=== PATIENT | male | born 1985 | race African-American/Black ===

== ENCOUNTER 2018-02-15 07:48 | Emergency (ER) | payer OTHER ==
[~2018-02-15] VITALS: Ht 188 cm; Wt 107.0 kg
[2018-02-15] MEDS ORDERED: MAGNESIUM/ALUMINUM HYDROXIDE/SIMETHICONE 30ML UDC PO ONE (08:15)
[2018-02-15] MEDS ORDERED: VISCOUS LIDOCAINE 2% 15 ML UDC PO ONE (08:15)
[2018-02-15] MEDS ORDERED: ONDANSETRON 4MG ODT PO ONE (08:15)
[2018-02-15] MEDS ORDERED: FAMOTIDINE 20MG TABLET PO ONE (08:15)
[2018-02-15] MEDS ORDERED: DICYCLOMINE 10 MG/5 ML ORAL SYR PO ONE (08:15)
[2018-02-15 08:38] LABS: BASOPHILS % 0.2 % (0.0-2.0); EOSINOPHILS % 0.1 % (0.0-5.0); HEMATOCRIT. 42.6 % (42.0-52.0); HEMOGLOBIN. 13.6 g/dL (14.0-18.0); LYMPHOCYTES % 10.2 % (20.0-50.0); MEAN CORPUSCULAR HEMOGLOBIN 25.9 pg (28.0-32.0); MEAN PLATELET VOLUME 7.6 fl (7.4-10.4); MONOCYTES % 3.9 % (2.0-8.0); NEUTROPHILS % 85.6 % (40.0-76.0); PLATELET 266 x1000/uL (130-400); RED BLOOD CELL COUNT 5.25 mill/uL (4.7-6.1); RED CELL DISTRIBUTION WIDTH 13.6 % (11.6-14.6)
[2018-02-15 08:45] LABS: CHLORIDE 108 mEq/L (98-107)
[2018-02-15 10:08] VITALS: BP 118/65
== END 2018-02-15 10:08 | disposition home or self-care (01) ==
LOC: ER 07:48
DX: R10.13 Epigastric pain (principal); R11.2 Nausea with vomiting, unspecified
CPT/HCPCS: 36415; 80053; 83690; 85025; 99284; Q0162

== ENCOUNTER 2020-12-11 09:02 | Emergency (ER) | payer OTHER ==
[~2020-12-11] VITALS: Ht 188 cm; Wt 122.0 kg
[2020-12-11] MEDS ORDERED: ONDANSETRON HCL 4MG/2ML INJ IV STA ×2 (09:19→11:58)
[2020-12-11] MEDS ORDERED: FAMOTIDINE 20MG/2ML VIAL IV STA (09:19)
[2020-12-11] MEDS ORDERED: MORPHINE SULFATE 4 MG/ML CPJ (NOT FOR IM USE) IV STA ×2 (09:19→11:58)
[2020-12-11] MEDS ORDERED: SODIUM CHLORIDE 0.9% 1,000 ML IV ONE (09:30)
[2020-12-11 09:35] LABS: BASOPHILS % 0.5 % (0.0-2.0); EOSINOPHILS % 0.6 % (0.0-5.0); HEMATOCRIT. 41.3 % (42.0-52.0); HEMOGLOBIN. 13.7 g/dL (14.0-18.0); MEAN CORPUSCULAR HEMOGLOBIN 26.6 pg (28.0-32.0); MEAN CORPUSCULAR VOLUME 79.8 fL (80.0-94.0); MEAN PLATELET VOLUME 7.2 fl (7.4-10.4); MONOCYTES % 5.7 % (2.0-8.0); NEUTROPHILS % 73.2 % (40.0-76.0); PLATELET 300 x1000/uL (130-400); RED BLOOD CELL COUNT 5.17 mill/uL (4.7-6.1); RED CELL DISTRIBUTION WIDTH 13.8 % (11.6-14.6)
[2020-12-11 09:41] LABS: CHLORIDE 108 mEq/L (98-107)
[2020-12-11 09:45] LABS: PROTHROMBIN TIME 10.6 sec (9.6-11.0)
[2020-12-11] MEDS ORDERED: PIPERACILLIN/TAZ 3.375G PREMIX 50 ML IV ONE (12:00)
[2020-12-11 12:08] LABS: CLARITY URINE CLOUDY (CLEAR); COLOR URINE YELLOW (YELLOW); KETONES URINE TRACE (NEGATIVE); LEUKOCYTE ESTERASE URINE NEGATIVE (NEGATIVE); NITRITE URINE NEGATIVE (NEGATIVE); OCCULT BLOOD URINE NEGATIVE (NEGATIVE); PH URINE 7.5 (4.5-8.0); PROTEIN URINE 1+ (NEGATIVE); SPECIFIC GRAVITY URINE 1.024 (1.005-1.030)
[2020-12-11 18:28] VITALS: BP 158/103
== END 2020-12-11 18:41 | disposition short-term general hospital (02) ==
LOC: ER 09:02 → CANBEDREQ 18:48
DX: R10.13 Epigastric pain (principal); K80.00 Calculus of gallbladder with acute cholecystitis without obstruction; K76.0 Fatty (change of) liver, not elsewhere classified
CPT/HCPCS: 36415; 71045; 76705; 80053; 81003; 83690; 84484; 85025; 85610; 93005; 96361; 96365; 96375; 96376; 99285; J2270; J2405; J2543; J3490; J7030